=== PATIENT | male | born 1945 | race Asian ===

== ENCOUNTER 2018-09-25 14:10 | Emergency (ER) | payer OTHER ==
--- NOTE | 2018-09-25 15:33 | RAD REPORT ---
EXAM DESCRIPTION: RAD - Chest Single View - 09/25/2018 3:24 pm CLINICAL HISTORY: COUGH Chest pain. COMPARISON: CHEST SINGLE VIEW dated 06/29/2014 FINDINGS: Portable technique limits examination quality. The lungs are grossly clear. The heart is normal in size. No displaced fractures. IMPRESSION: No acute intrathoracic process suspected.
[2018-09-25] MEDS ORDERED: METHYLPREDNISOLONE 125 MG INJ ONE (15:35)
[2018-09-25] MEDS ORDERED: predniSONE 10 MG TAB ONE (15:35)
[2018-09-25] MEDS ORDERED: DIPHENHYDRAMINE 50 MG/ML VIAL ONE (15:35)
[2018-09-25] MEDS ORDERED: CEFAZOLIN/SWI 1gm 1 GM/10 ML SYR ONE (15:36)
[2018-09-25] MEDS ORDERED: NA CHLORIDE 0.9% 1,000 ML ONE (15:36)
[2018-09-25] MEDS ORDERED: FAMOTIDINE 20 MG/2 ML VIAL IV ONE (15:36)
[2018-09-25 15:49] LABS: Absolute Lymphocytes (CBC) 1.8 K/uL (0.7-4.9); Absolute Monocytes 0.7 K/uL (0.1-1.3); Absolute Neutrophil 5.1 K/uL (1.8-8.0); Basophils % 0.4 % (0-1.3); Eosinophils % 10.7 % (0-4.4); Hematocrit 49.3 % (39.6-49.0); Lymphocytes % 21.1 % (15.3-44.8); MPV 9.5 fL (7.6-11.3); Monocytes % 8.4 % (3.3-12.3); RBC Red Blood Cell Count 5.43 M/uL (4.33-5.43)
[2018-09-25 15:55] LABS: Protime INR 1.04
[2018-09-25 16:08] LABS: ALT/SGPT 22 U/L (12-78); AST/SGOT 13 U/L (15-37); Alkaline Phosphatase 65 U/L (45-117); BUN Blood Urea Nitrogen 12 mg/dL (7-18); Bicarbonate 28 mmol/L (21-32); Bilirubin Direct 0.2 mg/dL (0-0.2); Bilirubin Total 0.8 mg/dL (0.2-1.0); Glucose Level 89 mg/dL (74-106); Magnesium 2.3 mg/dL (1.8-2.4); NT PRO-BNP 28 pg/mL (<450); Protein, Total 7.8 g/dL (6.4-8.2); Sodium Level 140 mmol/L (136-145); Troponin (Emerg Dept Use Only) < 0.02 ng/mL (0.0-0.045)
[2018-09-25 16:51] LABS: Urine Blood NEGATIVE (NEG); Urine Glucose NEGATIVE (NEG); Urine Protein TRACE (NEG); Urine pH 5.5 (5.0-7.0)
--- NOTE | 2018-09-25 16:57 | ER ---
Nurse's Notes [facility] Name: Adrianna Serrato Age: 73 yrs Sex: Male : 1945 Arrival Date: 09/25/2018 Time: 14:15 Bed 6 Private MD: Diagnosis: Insect bite (nonvenomous) of abdominal wall;Insect bite (nonvenomous) of front wall of thorax;Insect bite (nonvenomous) of left back wall of thorax;Insect bite (nonvenomous), left lower leg;Insect bite (nonvenomous), right lower leg;Balanitis Presentation: 09/25 14:15 Presenting complaint: Child states: Itchy painful rash all over body, happened a few la1 weeks ago but is back and getting worse, yesterday penis and testicle began swelling, Pt reports he is still able to urinate but having a lot of pain. Transition of care: patient was not received from another setting of care. Onset of symptoms was September 25, 2018. Risk Assessment: Do you want to hurt yourself or someone else? Patient reports no desire to harm self or others. Initial Sepsis Screen: Does the patient meet any 2 criteria? No. Patient's initial sepsis screen is negative. Does the patient have a suspected source of infection? No. Patient's initial sepsis screen is negative. Care prior to arrival: None. 14:15 Method Of Arrival: Ambulatory la1 14:15 Acuity: SANIA 3 la1 Triage Assessment: 14:15 General: Appears in no apparent distress. uncomfortable, Behavior is calm, cooperative, hj appropriate for age. Pain: Complains of pain in left leg and right leg and left arm and right arm and pelvis and abdomen and chest and back. EENT: No signs and/or symptoms were reported regarding the EENT system. Neuro: Level of Consciousness is awake, alert, obeys commands, Oriented to person, place, time, situation, Appropriate for age. Cardiovascular: Capillary refill < 3 seconds Patient's skin is warm and dry. Respiratory: Airway is patent Respiratory effort is even, unlabored, Respiratory pattern is regular, symmetrical. GI: No signs and/or symptoms were reported involving the gastrointestinal system. : No signs and/or symptoms were reported regarding the genitourinary system. Derm: Rash noted that is. Musculoskeletal: No signs and/or symptoms reported regarding the musculoskeletal system. Historical: - Allergies: 14:18 No Known Allergies; la1 - Home Meds: 14:18 None [Active]; la1 - PMHx: 14:18 None; la1 - PSHx: 14:18 None; la1 - Immunization history:: Adult Immunizations up to date. - Social history:: Smoking status: Patient/guardian denies using tobacco. - Ebola Screening: : No symptoms or risks identified at this time. - Family history:: not pertinent. Screenin:15 Abuse screen: Denies threats or abuse. Denies injuries from another. Nutritional hj screening: No deficits noted. Tuberculosis screening: No symptoms or risk factors identified. Fall Risk None identified. Assessment: 14:15 Reassessment: see triage for assessment;. hj 15:24 Reassessment: Patient and/or family updated on plan of care and expected duration. Pain hj level reassessed. Patient is alert, oriented x 3, equal unlabored respirations, skin warm/dry/pink. daughter in law with pt; awaiting results and POC:. 16:30 Reassessment: Patient and/or family updated on plan of care and expected duration. Pain hj level reassessed. Patient is alert, oriented x 3, equal unlabored respirations, skin warm/dry/pink. Patient states feeling better. Patient states symptoms have improved. 17:13 Reassessment: awaiting Rx for pain meds;. hj Vital Signs: 14:18 BP 104 / 62; Pulse 79; Resp 16; Temp 97.5; Pulse Ox 98% on R/A; la1 15:36 BP 130 / 61; Pulse 73; Resp 18; Pulse Ox 100% on R/A; hj 16:11 BP 126 / 67; Pulse 75; Resp 18; Pulse Ox 100% on R/A; hj 17:00 BP 138 / 69; Pulse 77; Resp 18; Pulse Ox 100% on R/A; hj ED Course: 14:15 Patient arrived in ED. ss4 14:15 Patient has correct armband on for positive identification. Placed in gown. Bed in low hj position. Call light in reach. Side rails up X 1. Adult w/ patient. 14:16 Triage completed. la1 14:19 Arm band placed on right wrist. la1 14:22 Prashant Jenkins ESTEVAN is Primary Nurse. hj 14:49 Talha Medina MD is Attending Physician. ermelinda 15:24 XRAY Chest (1 view) In Process Unspecified. EDMS 16:21 Urine Culture Sent. hj 16:54 Zeeshan Esquivel MD is Referral Physician. ermelinda 17:01 No provider procedures requiring assistance completed. hj 17:13 IV discontinued, intact, bleeding controlled, No redness/swelling at site. Pressure hj dressing applied. Administered Medications: 15:20 Drug: NS 0.9% 1000 ml Route: IV; Rate: 1 bolus; Site: left antecubital; hj 17:00 Follow up: IV Status: Completed infusion; IV Intake: 1000ml hj 15:20 Drug: Benadryl 25 mg Route: IVP; Site: left antecubital; hj 16:11 Follow up: Response: No adverse reaction hj 15:20 Drug: Pepcid 20 mg Route: IVP; Site: left antecubital; hj 16:11 Follow up: Response: No adverse reaction hj 15:20 Drug: SOLU-Medrol 125 mg Route: IVP; Site: left antecubital; hj 16:11 Follow up: Response: No adverse reaction hj 15:20 Drug: Ancef 1 grams Route: IVPB; Site: left antecubital; hj 16:10 Follow up: IV Status: Completed infusion; IV Intake: 10ml hj 15:20 Drug: predniSONE 20 mg Route: PO; hj 16:10 Follow up: Response: No adverse reaction hj Intake: 16:10 IV: 10ml; Total: 10ml. hj 17:00 IV: 1000ml; Total: 1010ml. Outcome: 16:54 Discharge ordered by . ermelinda 17:13 Discharged to home ambulatory, with family. hj 17:13 Condition: stable 17:13 Discharge instructions given to patient, family, Instructed on discharge instructions, follow up and referral plans. medication usage, Demonstrated understanding of instructions, follow-up care, medications, Prescriptions given X 5 17:33 Patient left the ED. hj Signatures: Dispatcher [employer] EDMS Talha Medina MD MD cha Attema, Lee RN RN la1 Prashant Jenkins RN RN hj Smith, Stephanie 4
--- NOTE | 2018-09-25 16:57 | EDPHYS ---
Physician Documentation [facility] Name: Adrianna Serrato Age: 73 yrs Sex: Male : 1945 Arrival Date: 09/25/2018 Time: 14:15 Bed 6 Private MD: ED Physician Talha Medina HPI: 09/25 15:07 This 73 yrs old Male presents to ER via Ambulatory with complaints of Rash, ermelinda Testicular Pain, Testicular Swelling. 15:07 The patient's rash thought to be caused by insect bites, Dermatitis. The rash is ermelinda located on the body diffusely. The rash can be described as erythematous, patchy, raised. Onset: The symptoms/episode began/occurred 1 week(s) ago. Associated signs and symptoms: Pertinent positives: None. Pertinent negatives: None. Severity of symptoms: At their worst the symptoms were mild in the emergency department the symptoms are unchanged. Treatment given at home: Benadryl. The patient has not experienced similar symptoms in the past. Historical: - Allergies: 14:18 No Known Allergies; la1 - Home Meds: 14:18 None [Active]; la1 - PMHx: 14:18 None; la1 - PSHx: 14:18 None; la1 - Immunization history:: Adult Immunizations up to date. - Social history:: Smoking status: Patient/guardian denies using tobacco. - Ebola Screening: : No symptoms or risks identified at this time. - Family history:: not pertinent. ROS: 15:07 Constitutional: Negative for fever, chills, and weight loss, Eyes: Negative for injury, ermelinda pain, redness, and discharge, ENT: Negative for injury, pain, and discharge, Neck: Negative for injury, pain, and swelling, Cardiovascular: Negative for chest pain, palpitations, and edema, Respiratory: Negative for shortness of breath, cough, wheezing, and pleuritic chest pain, Abdomen/GI: Negative for abdominal pain, nausea, vomiting, diarrhea, and constipation, Back: Negative for injury and pain, : Negative for injury, bleeding, discharge, and swelling, MS/Extremity: Negative for injury and deformity, Neuro: Negative for headache, weakness, numbness, tingling, and seizure, Psych: Negative for depression, anxiety, suicide ideation, homicidal ideation, and hallucinations, Allergy/Immunology: Negative for hives, rash, and allergies, Endocrine: Negative for neck swelling, polydipsia, polyuria, polyphagia, and marked weight changes, Hematologic/Lymphatic: Negative for swollen nodes, abnormal bleeding, and unusual bruising. 15:07 Skin: Positive for cellulitis, erythema, lesions, rash, diffusely. Exam: 15:07 Constitutional: This is a well developed, well nourished patient who is awake, alert, ermelinda and in no acute distress. Head/Face: Normocephalic, atraumatic. Eyes: Pupils equal round and reactive to light, extra-ocular motions intact. Lids and lashes normal. Conjunctiva and sclera are non-icteric and not injected. Cornea within normal limits. Periorbital areas with no swelling, redness, or edema. ENT: Nares patent. No nasal discharge, no septal abnormalities noted. Tympanic membranes are normal and external auditory canals are clear. Oropharynx with no redness, swelling, or masses, exudates, or evidence of obstruction, uvula midline. Mucous membranes moist. Neck: Trachea midline, no thyromegaly or masses palpated, and no cervical lymphadenopathy. Supple, full range of motion without nuchal rigidity, or vertebral point tenderness. No Meningismus. Chest/axilla: Normal chest wall appearance and motion. Nontender with no deformity. No lesions are appreciated. Cardiovascular: Regular rate and rhythm with a normal S1 and S2. No gallops, murmurs, or rubs. Normal PMI, no JVD. No pulse deficits. Respiratory: Lungs have equal breath sounds bilaterally, clear to auscultation and percussion. No rales, rhonchi or wheezes noted. No increased work of breathing, no retractions or nasal flaring. Abdomen/GI: Soft, non-tender, with normal bowel sounds. No distension or tympany. No guarding or rebound. No evidence of tenderness throughout. Back: No spinal tenderness. No costovertebral tenderness. Full range of motion. MS/ Extremity: Pulses equal, no cyanosis. Neurovascular intact. Full, normal range of motion. Neuro: Awake and alert, GCS 15, oriented to person, place, time, and situation. Cranial nerves II-XII grossly intact. Motor strength 5/5 in all extremities. Sensory grossly intact. Cerebellar exam normal. Normal gait. Psych: Awake, alert, with orientation to person, place and time. Behavior, mood, and affect are within normal limits. 15:07 : CVA tenderness, is absent, Male external genitalia: normal, Bladder: is normal. 15:07 Skin: lesion(s), noted, and can be described as erythematous, raised, tender, located on the back, chest, abdomen, pelvis, right arm, left arm, right leg and left leg. Vital Signs: 14:18 BP 104 / 62; Pulse 79; Resp 16; Temp 97.5; Pulse Ox 98% on R/A; la1 15:36 BP 130 / 61; Pulse 73; Resp 18; Pulse Ox 100% on R/A; hj 16:11 BP 126 / 67; Pulse 75; Resp 18; Pulse Ox 100% on R/A; hj 17:00 BP 138 / 69; Pulse 77; Resp 18; Pulse Ox 100% on R/A; hj MDM: 14:49 Patient medically screened. [facility] 15:10 Data reviewed: vital signs, nurses notes, lab test result(s), EKG, radiologic studies, ermelinda plain films. 09/25 15:08 Order name: Basic Metabolic Panel; Complete Time: 16:55 [facility] 09/25 15:08 Order name: CBC with Diff; Complete Time: 15:54 [facility] 09/25 15:08 Order name: LFT's; Complete Time: 16:55 [facility] 09/25 15:08 Order name: Magnesium; Complete Time: 16:55 [facility] 09/25 15:08 Order name: NT PRO-BNP; Complete Time: 16:55 [facility] 09/25 15:08 Order name: PT-INR; Complete Time: 16:55 [facility] 09/25 15:08 Order name: Troponin (emerg Dept Use Only); Complete Time: 16:55 [facility] 09/25 15:08 Order name: XRAY Chest (1 view); Complete Time: 15:54 [facility] 09/25 15:08 Order name: Blood Culture Adult (2) [facility] 09/25 15:08 Order name: Urine Culture [facility] 09/25 16:30 Order name: Urine Dipstick--Ancillary (enter results); Complete Time: 16:55 09/25 15:08 Order name: EKG; Complete Time: 15:09 [facility] 09/25 15:08 Order name: Cardiac monitoring; Complete Time: 15:08 [facility] 09/25 15:08 Order name: EKG - Nurse/Tech; Complete Time: 15:35 [facility] 09/25 15:08 Order name: IV Saline Lock; Complete Time: 15:35 [facility] 09/25 15:08 Order name: Labs collected and sent; Complete Time: 15:35 [facility] 09/25 15:08 Order name: O2 Per Protocol; Complete Time: 15:08 [facility] 09/25 15:08 Order name: O2 Sat Monitoring; Complete Time: 15: [facility] 09/25 15:08 Order name: Urine Dipstick-Ancillary (obtain specimen); Complete Time: 16:21 [facility] Administered Medications: 15:20 Drug: NS 0.9% 1000 ml Route: IV; Rate: 1 bolus; Site: left antecubital; hj 17:00 Follow up: IV Status: Completed infusion; IV Intake: 1000ml 15:20 Drug: Benadryl 25 mg Route: IVP; Site: left antecubital; hj 16:11 Follow up: Response: No adverse reaction 15:20 Drug: Pepcid 20 mg Route: IVP; Site: left antecubital; hj 16:11 Follow up: Response: No adverse reaction hj 15:20 Drug: SOLU-Medrol 125 mg Route: IVP; Site: left antecubital; hj 16:11 Follow up: Response: No adverse reaction 15:20 Drug: Ancef 1 grams Route: IVPB; Site: left antecubital; hj 16:10 Follow up: IV Status: Completed infusion; IV Intake: 10ml hj 15:20 Drug: predniSONE 20 mg Route: PO; hj 16:10 Follow up: Response: No adverse reaction Disposition: 09/25/18 16:54 Discharged to Home. Impression: Insect bite (nonvenomous) of abdominal wall, Insect bite (nonvenomous) of front wall of thorax, Insect bite (nonvenomous) of left back wall of thorax, Insect bite (nonvenomous), left lower leg, Insect bite (nonvenomous), right lower leg, Balanitis. - Condition is Stable. - Discharge Instructions: Balanitis, Insect Bite, [id number], Insect Bite, Cellulitis, Adult, Cellulitis, Adult, [id number]. - Prescriptions for Benadryl 25 mg Oral Capsule - take 1 capsule by ORAL route every 6 hours As needed; 30 tablet. Keflex 500 mg Oral Capsule - take 1 capsule by ORAL route every 6 hours for 10 days; 40 capsule. Pepcid 20 mg Oral Tablet - take 1 tablet by ORAL route every 12 hours for 10 days; 20 tablet. Medrol (Peewee) 4 mg Oral Tablets, Dose Pack - take 1 tablet by ORAL route as directed - follow package instructions; 1 packet. Bactrim DS 800- 160 mg Oral Tablet - take 1 tablet by ORAL route every 12 hours for 10 days; 20 tablet. Tylenol- Codeine #3 300-30 mg Oral Tablet - take 2 tablet by ORAL route every 6 hours As needed; 30 tablet. - Medication Reconciliation Form, Thank You Letter, Antibiotic Education, Prescription Opioid Use form. - Follow up: Private Physician; When: 2 - 3 days; Reason: Recheck today's complaints, Continuance of care, Re-evaluation by your physician. Follow up: A Esquivel; When: 2 - 3 days; Reason: Recheck today's complaints, Re-evaluation by your physician. - Problem is new. - Symptoms have improved. Signatures: Dispatcher [employer] EDTalha Beltran MD MD cha Attema, Lee RN RN la1 Prashant Jenkins RN RN hj Corrections: (The following items were deleted from the chart) 17:33 16:54 09/25/2018 16:54 Discharged to Home. Impression: Insect bite (nonvenomous) of hj abdominal wall; Insect bite (nonvenomous) of front wall of thorax; Insect bite (nonvenomous) of left back wall of thorax; Insect bite (nonvenomous), left lower leg; Insect bite (nonvenomous), right lower leg; Balanitis. Condition is Stable. Discharge Instructions: Balanitis, Insect Bite, [id number], Insect Bite, Cellulitis, Adult, Cellulitis, Adult, [id number]. Prescriptions for Benadryl 25 mg Oral Capsule - take 1 capsule by ORAL route every 6 hours As needed; 30 tablet, Keflex 500 mg Oral Capsule - take 1 capsule by ORAL route every 6 hours for 10 days; 40 capsule, Pepcid 20 mg Oral Tablet - take 1 tablet by ORAL route every 12 hours for 10 days; 20 tablet, Medrol (Peewee) 4 mg Oral Tablets, Dose Pack - take 1 tablet by ORAL route as directed - follow package instructions; 1 packet, Bactrim DS 800-160 mg Oral Tablet - take 1 tablet by ORAL route every 12 hours for 10 days; 20 tablet. and Forms are Medication Reconciliation Form, Thank You Letter, Antibiotic Education, Prescription Opioid Use. Follow up: Private Physician; When: 2 - 3 days; Reason: Recheck today's complaints, Continuance of care, Re-evaluation by your physician. Follow up: A Esquivel; When: 2 - 3 days; Reason: Recheck today's complaints, Re-evaluation by your physician. Problem is new. Symptoms have improved. ermelinda
[2018-09-25 17:41] VITALS: TEMP 97.5
[2018-09-25 17:43] VITALS: O2SAT 100
[2018-09-25 17:46] VITALS: BP 138/69
--- NOTE | 2018-09-26 10:08 | EKG ---
Test Date: 2018-09-25 Test Time: 15:15:38 Crematory Operator: MEASUREMENT RESULTS: Intervals: Rate: 75 OR: 154 QRSD: 96 QT: 424 QTc: 473 [place]: P: 74 OR: 154 QRS: 77 T: 65 INTERPRETIVE STATEMENTS: Normal sinus rhythm Normal ECG Compared to ECG 06/29/2014 09:14:07 No significant changes Electronically Signed On 09-26-18 10:05:48 CDT by Rayshawn Eli
== END 2018-09-25 17:33 | disposition home or self-care (01) ==
LOC: ER 14:10
DX: S30.861A Insect bite (nonvenomous) of abdominal wall, initial encounter (principal); S20.369A Insect bite (nonvenomous) of unspecified front wall of thorax, initial encounter; S20.462A Insect bite (nonvenomous) of left back wall of thorax, initial encounter; S80.862A Insect bite (nonvenomous), left lower leg, initial encounter; S80.861A Insect bite (nonvenomous), right lower leg, initial encounter; W57.XXXA Bitten or stung by nonvenomous insect and other nonvenomous arthropods, initial encounter; N48.1 Balanitis
CPT/HCPCS: 96365; 96361; 93005; 87040 ×2; 87088; 85025; 80048; 36415; 83735; 85610; 80076; 81003; 84484; 83880; 71045; 96375; 99284; J0690; J7030; J2930; 87086; J7512